=== PATIENT | female | born 1980 | race Two or more races ===

== ENCOUNTER 2018-07-19 12:53 | Outpatient (CLI) | END 2018-07-19 16:18 | disposition home or self-care (01) ==

== ENCOUNTER 2018-07-29 18:28 | Inpatient (IN) | END 2018-08-02 16:05 | disposition home or self-care (01) | DRG 768 ==

== ENCOUNTER 2019-05-28 23:30 | Emergency (ER) | payer MEDICAID ==
[~2019-05-28] VITALS: Ht 154.9 cm; Wt 75.5 kg
[~2019-05-28 23:30] MED LIST: ACET500C5 PO; METH0.2V2 PO; PNV11TAB PO
[2019-05-28 23:31] VITALS: Ht 154.9 cm; Wt 75.5 kg
[2019-05-29] MEDS ORDERED: ACETAMINOPHEN 325 MG TAB PO STA (00:16)
[2019-05-29 02:55] VITALS: BP 126/78; PULSE 89; RESP 20
== END 2019-05-29 02:58 | disposition home or self-care (01) ==
LOC: FTE 23:30
DX: O03.9 Complete or unspecified spontaneous abortion without complication (principal)
CPT/HCPCS: 36415; 76801; 76817; 81001; 84702; 85025; 85610; 85730; 86900; 86901; 88305; Z7502; Z7610